=== PATIENT | female | born 1995 | race Caucasian/White ===

== ENCOUNTER → 2019-03-10 | Outpatient (CLI) | payer BC | LOC: BHSO 13:54 | DX: F41.1 Generalized anxiety disorder (principal) ==

== ENCOUNTER → 2019-03-23 | Outpatient (CLI) | payer BC | LOC: BHSO 15:04 | DX: F41.1 Generalized anxiety disorder (principal) ==

== ENCOUNTER → 2019-03-30 | Outpatient (CLI) | payer BC | LOC: BHSO 14:55 | DX: F41.1 Generalized anxiety disorder (principal) ==

== ENCOUNTER → 2019-04-06 | Outpatient (CLI) | payer BC | LOC: BHSO 15:00 | DX: F41.1 Generalized anxiety disorder (principal) ==

== ENCOUNTER → 2019-04-13 | Outpatient (CLI) | payer BC | LOC: BHSO 14:55 | DX: F33.0 Major depressive disorder, recurrent, mild (principal) ==

== ENCOUNTER → 2019-04-24 | Outpatient (CLI) | payer BC | LOC: BHSO 10:12 | DX: F33.0 Major depressive disorder, recurrent, mild (principal) ==

== ENCOUNTER → 2019-05-01 | Outpatient (CLI) | payer BC | LOC: BHSO 13:10 | DX: F33.0 Major depressive disorder, recurrent, mild (principal) ==

== ENCOUNTER → 2019-05-15 | Outpatient (CLI) | payer BC | LOC: BHSO 13:48 | DX: F41.1 Generalized anxiety disorder (principal) ==

== ENCOUNTER → 2019-05-22 | Outpatient (CLI) | payer BC | LOC: BHSO 13:56 | DX: F33.0 Major depressive disorder, recurrent, mild (principal) ==

== ENCOUNTER → 2019-05-29 | Outpatient (CLI) | payer BC | LOC: BHSO 16:00 | DX: F33.0 Major depressive disorder, recurrent, mild (principal) ==

== ENCOUNTER → 2019-07-09 | Outpatient (CLI) | payer BC | LOC: BHSO 13:48 | DX: F33.0 Major depressive disorder, recurrent, mild (principal) ==

== ENCOUNTER → 2019-07-22 | Outpatient (CLI) | payer BC | LOC: BHSO 14:52 | DX: F33.0 Major depressive disorder, recurrent, mild (principal) ==

== ENCOUNTER → 2019-08-18 | Outpatient (CLI) | payer BC | LOC: BHSO 14:57 | DX: F33.0 Major depressive disorder, recurrent, mild (principal) ==

== ENCOUNTER → 2019-08-31 | Outpatient (CLI) | payer BC | LOC: BHSO 13:55 | DX: F33.0 Major depressive disorder, recurrent, mild (principal) ==

== ENCOUNTER → 2019-09-18 | Outpatient (CLI) | payer BC | LOC: BHSO 13:01 | DX: F33.0 Major depressive disorder, recurrent, mild (principal) ==

== ENCOUNTER → 2019-10-09 | Outpatient (CLI) | payer BC | LOC: BHSO 13:56 | DX: F33.0 Major depressive disorder, recurrent, mild (principal) ==